=== PATIENT | female | born 1980 | race Caucasian/White ===

== ENCOUNTER 2017-10-22 10:04 | Emergency (ER) | payer BC ==
[2017-10-22 11:12] LABS: ABS Basophils 0 10^3/ul (0-0.2); ABS Eosinophils 0.1 10^3/ul (0-0.6); ABS Lymphocytes 0.6 10^3/ul (1.0-4.8); ABS Monocytes 0.4 10^3/ul (0-0.8); ABS Neutrophils 6.8 10^3/ul (1.5-7.7); ABS Nucleated RBC 0 10^3/ul; Eosinophil % 1.1 % (0-6); Hematocrit 39 % (35-47); Hemoglobin 13.3 g/dl (12.0-16.0); Lymphocyte % 7.7 % (25-47); Mean Corpuscular HGB Conc 34 g/dl (31-36); Mean Corpuscular Hemoglobin 31 pg (27-31); Mean Corpuscular Volume 91 fL (80-97); Mean Platelet Volume 8 um3 (7.4-10.4); Nucleated Red Blood Cells % 0; Platelet Count 300 10^3/ul (150-450); Red Blood Count 4.27 10^6/ul (4.0-5.4); Red Cell Distribution Width 13 % (10.5-15)
[2017-10-22 11:23] LABS: INR 0.96 (0.77-1.02)
--- NOTE | 2017-10-22 11:26 | RAD ---
INDICATION: Short of breath COMPARISON: None TECHNIQUE: PA and lateral dual-energy views were obtained. FINDINGS: Bones/Soft Tissues: There are no acute bony findings. Cardiomediastinal: The cardiomediastinal silhouette is normal. Lungs: There are no infiltrates. Pleura: There are no pleural effusions. Other: None IMPRESSION: NORMAL CHEST
[2017-10-22 11:37] LABS: EGFR Non-African American 76.3 (>60)
[2017-10-22 12:47] VITALS: BP 129/87
--- NOTE | 2017-10-22 15:02 | ED ---
Madison Juan Gabriel, scribed for Jamshid Greenwood MD on 10/22/17 at 1204 . Influenza-Like Illness - HPI Summary HPI Summary: This patient is a 37 year old F presenting to [facility] accompanied by her with a chief complaint of flu like illness since a week ago. The patient rates the pain 4/10 in severity. Patient reports productive cough, fever, rhinorrhea, chest congestion, and nasal congestion. Patient denies sore throat. Pt had influenza B last month. - History of Current Complaint Chief Complaint: EDFluSymptoms Hx Obtained From: Patient Onset/Duration: Lasting Weeks - 1, Still Present Severity: Mild Associated Signs & Symptoms: Fever, Cough, Nasal Congestion - Allergy/Home Medications Allergies/Adverse Reactions: Allergies Allergy/AdvReac Type Severity Reaction Status Date / Time Sulfa (Sulfonamide Allergy Hives Verified 10/22/17 10:11 Antibiotics) Home Medications: Home Medications Levonorgestrel-Ethin Estradiol [Orsythia] 1 tab PO DAILY 10/22/17 [History Confirmed 10/22/17] PMH/Surg Hx/FS Hx/Imm Hx Endocrine/Hematology History: Denies: Hx Anticoagulant Therapy, Hx Blood Disorders Respiratory History: Denies: Hx Chronic Obstructive Pulmonary Disease (COPD), Hx Cystic Fibrosis, Hx Lung Cancer, Hx Pleural Effusion, Hx Pulmonary Edema, Hx Pulmonary Embolism, Hx Sleep Apnea Musculoskeletal History: Denies: Hx Arthritis Sensory History: Denies: Hx Cataracts Opthamlomology History: Denies: Hx Cataracts Neurological History: Denies: Hx CVA, Hx Dementia - Surgical History Surgery Procedure, Year, and Place: gallbladder, left knee ACL repair, tonsilectomy Infectious Disease History: No Infectious Disease History: Denies: Traveled Outside the [place] in Last 30 Days - Family History Known Family History: Positive: Hypertension Negative: Renal Disease, Respiratory Disease, Seizure Disorder, Blood Disorder - Social History Occupation: Employed Full-time Lives: With Family Alcohol Use: Occasionally Substance Use Type: Reports: None Smoking Status (MU): Never Smoked Tobacco Review of Systems Positive: Fever Positive: Nasal Discharge - and congestion . Negative: Sore Throat Positive: Cough, Other - chest congestion All Other Systems Reviewed And Are Negative: Yes Physical Exam - Summary Physical Exam Summary: Appearance: The patient is well-nourished in no acute distress and in no acute pain. Skin: The skin is warm and dry and skin color reflects adequate perfusion. HEENT: The head is normocephalic and atraumatic. The pupils are equal and reactive. The conjunctivae are clear and without drainage. . Mouth reveals moist mucous membranes and the throat is without erythema and exudate. The external ears are intact. The ear canals are patent and without drainage. The tympanic membranes are intact. Nasal congestion Neck: the neck is supple with full range of motion and non-tender. There are no carotid bruits. There is no neck vein distension. Respiratory: Chest is non-tender. Lungs are clear to auscultation and breath sounds are symmetrical and equal. Dry cough Cardiovascular: Heart is regular rate and rhythm. There is no murmur or rub auscultated. There is no peripheral edema and pulses are symmetrical and equal. Abdomen: The abdomen is soft and non-tender. There are normal bowel sounds heard in all four quadrants and there is no organomegaly palpated. Musculoskeletal: There is no back tenderness noted. Extremities are non-tender with full range of motion. There is good capillary refill. There is no peripheral edema or calf tenderness elicited. Neurological: Patient is alert and oriented to person, place and time. The patient has symmetrical motor strength in all four extremities. Cranial nerves are grossly intact. Deep tendon reflexes are symmetrical and equal in all four extremities. Psychiatric: The patient has an appropriate affect and does not exhibit any anxiety or depression. Triage Information Reviewed: Yes Vital Signs On Initial Exam: Initial Vitals Temp Pulse Resp BP Pulse Ox 102.8 F 146 22 150/100 100 10/22/17 10:08 10/22/17 10:08 10/22/17 10:08 10/22/17 10:08 10/22/17 10:08 Vital Signs Reviewed: Yes Diagnostics - Vital Signs Vital Signs Temp Pulse Resp BP Pulse Ox 10/22/17 10:08 102.8 F 146 22 150/100 100 - Laboratory Lab Results: Lab Results 10/22/17 10/22/17 10/22/17 Range/Units 10:36 11:00 11:00 WBC 8.0 (3.5-10.8) 10^3/ul RBC 4.27 (4.0-5.4) 10^6/ul Hgb 13.3 (12.0-16.0) g/dl Hct 39 (35-47) % MCV 91 (80-97) fL MCH 31 (27-31) pg MCHC 34 (31-36) g/dl RDW 13 (10.5-15) % Plt Count 300 (150-450) 10^3/ul MPV 8 (7.4-10.4) um3 Neut % (Auto) 85.1 H (38-83) % Lymph % (Auto) 7.7 L (25-47) % Jessamine % (Auto) 5.6 (0-7) % Eos % (Auto) 1.1 (0-6) % Baso % (Auto) 0.5 (0-2) % Absolute Neuts (auto) 6.8 (1.5-7.7) 10^3/ul Absolute Lymphs (auto) 0.6 L (1.0-4.8) 10^3/ul Absolute Monos (auto) 0.4 (0-0.8) 10^3/ul Absolute Eos (auto) 0.1 (0-0.6) 10^3/ul Absolute Basos (auto) 0 (0-0.2) 10^3/ul Absolute Nucleated RBC 0 10^3/ul Nucleated RBC % 0 INR (Anticoag Therapy) 0.96 (0.77-1.02) APTT 30.3 (26.0-36.3) seconds Sodium (133-145) mmol/L Potassium (3.5-5.0) mmol/L Chloride (101-111) mmol/L Carbon Dioxide (22-32) mmol/L Anion Gap (2-11) mmol/L BUN (6-24) mg/dL Creatinine (0.51-0.95) mg/dL Est GFR ( Amer) (>60) Est GFR (Non-Af Amer) (>60) BUN/Creatinine Ratio (8-20) Glucose (70-100) mg/dL Lactic Acid (0.5-2.0) mmol/L Calcium (8.6-10.3) mg/dL Total Bilirubin (0.2-1.0) mg/dL AST (13-39) U/L ALT (7-52) U/L Alkaline Phosphatase (34-104) U/L Troponin I (<0.04) ng/mL Total Protein (6.4-8.9) g/dL Albumin (3.2-5.2) g/dL Globulin (2-4) g/dL Albumin/Globulin Ratio (1-3) Influenza A (Rapid) Negative (Negative) Influenza B (Rapid) Negative (Negative) 10/22/17 10/22/17 Range/Units 11:00 11:00 WBC (3.5-10.8) 10^3/ul RBC (4.0-5.4) 10^6/ul Hgb (12.0-16.0) g/dl Hct (35-47) % MCV (80-97) fL MCH (27-31) pg MCHC (31-36) g/dl RDW (10.5-15) % Plt Count (150-450) 10^3/ul MPV (7.4-10.4) um3 Neut % (Auto) (38-83) % Lymph % (Auto) (25-47) % Jessamine % (Auto) (0-7) % Eos % (Auto) (0-6) % Baso % (Auto) (0-2) % Absolute Neuts (auto) (1.5-7.7) 10^3/ul Absolute Lymphs (auto) (1.0-4.8) 10^3/ul Absolute Monos (auto) (0-0.8) 10^3/ul Absolute Eos (auto) (0-0.6) 10^3/ul Absolute Basos (auto) (0-0.2) 10^3/ul Absolute Nucleated RBC 10^3/ul Nucleated RBC % INR (Anticoag Therapy) (0.77-1.02) APTT (26.0-36.3) seconds Sodium 135 (133-145) mmol/L Potassium 3.7 (3.5-5.0) mmol/L Chloride 102 (101-111) mmol/L Carbon Dioxide 24 (22-32) mmol/L Anion Gap 9 (2-11) mmol/L BUN 7 (6-24) mg/dL Creatinine 0.84 (0.51-0.95) mg/dL Est GFR ( Amer) 98.1 (>60) Est GFR (Non-Af Amer) 76.3 (>60) BUN/Creatinine Ratio 8.3 (8-20) Glucose 106 H (70-100) mg/dL Lactic Acid 0.7 (0.5-2.0) mmol/L Calcium 9.3 (8.6-10.3) mg/dL Total Bilirubin 0.40 (0.2-1.0) mg/dL AST 13 (13-39) U/L ALT 12 (7-52) U/L Alkaline Phosphatase 60 (34-104) U/L Troponin I 0.00 (<0.04) ng/mL Total Protein 8.0 (6.4-8.9) g/dL Albumin 4.4 (3.2-5.2) g/dL Globulin 3.6 (2-4) g/dL Albumin/Globulin Ratio 1.2 (1-3) Influenza A (Rapid) (Negative) Influenza B (Rapid) (Negative) Result Diagrams: 10/22/17 11:00 10/22/17 11:00 Lab Statement: Any lab studies that have been ordered have been reviewed, and results considered in the medical decision making process. - Radiology CXR Radiology Interpretation Completed By: Radiologist - normal chest ED physician has reviewed this radiology report. Flu Symptom Course/Dx - Course Course Of Treatment: Ms. Grijalva has been coughing for a week with a mostly dry cough and has been spiking fevers for a few days. She had influenza B last month but had been completely improved. Flu swabs are negative here as is her CXR and I will treat her symptomatically. She has no underlying lung disease. - Diagnoses Provider Diagnoses: Acute bronchitis Discharge - Discharge Plan Condition: Stable Disposition: HOME Prescriptions: Benzonatate CAP* [Tessalon 100 MG CAP*] 100 mg PO TID #30 cap Patient Education Materials: Acute Bronchitis (ED) Referrals: Umer Mcelroy DO [Primary Care Provider] - 4 Days Additional Instructions: RETURN TO EMERGENCY DEPARTMENT FOR ANY NEW OR WORSENING SYMPTOMS The documentation as recorded by the Madison long Gabriel accurately reflects the service I personally performed and the decisions made by me, Jamshid Greenwood MD.
== END 2017-10-22 12:45 | disposition home or self-care (01) ==
LOC: ED 10:04
DX: R50.9 Fever, unspecified (principal); R05 Cough; J20.9 Acute bronchitis, unspecified
CPT/HCPCS: 36415; 71046; 80053; 83605; 84484; 85025; 85610; 85730; 87040; 87502; 99282

== ENCOUNTER 2019-04-25 13:33 | Emergency (ER) | payer BC, OTHER ==
[2019-04-25 13:45] VITALS: BP 135/82
--- NOTE | 2019-04-25 13:54 | UC ---
Neck Pain HPI - HPI Summary HPI Summary: Patient presents to urgent care for evaluation of left posterior neck pain. Patient states possibly 2 weeks ago she was doing pushups when she lifted her head and felt a pop. Patient states since this time she's got focal pain in one location. Patient states when she flexes her neck or rotates that she has increased pain. Patient states when she extends her neck the pain seems to improve. Patient states that she feels tightness and slight headache in the same left posterior headache area. Patient states pain is better when she takes Motrin. Patient states it comes back with it wears off. No paresthesias or weakness of her extremities. No weakness of her choice. No other complaints. Patient without a history of similar. No ear pain sinus pain vision changes. Patient's on any anticoagulation. Patient's not pertinent. Patient's medications reviewed this visit. - History of Current Complaint Chief Complaint: UCHeadache Stated Complaint: PARKER,NECK PAIN Time Seen by Provider: 04/25/19 13:44 Hx Obtained From: Patient Hx Last Menstrual Period: 04/25/19 ?: No Onset/Duration Of Injury/Symptoms: Weeks Onset/Duration: Sudden Onset, Lasting Weeks Severity: Mild Pain Intensity: 3 - Allergies/Home Medications Allergies/Adverse Reactions: Allergies Allergy/AdvReac Type Severity Reaction Status Date / Time Sulfa (Sulfonamide Allergy Hives Verified 04/25/19 13:45 Antibiotics) PMH/Surg Hx/FS Hx/Imm Hx Previously Healthy: Yes Other History Of: Negative For: Anticoagulant Therapy - Surgical History Surgical History: Yes Surgery Procedure, Year, and Place: gallbladder, left knee ACL repair, tonsilectomy - Family History Known Family History: Positive: Hypertension Negative: Renal Disease, Respiratory Disease, Seizure Disorder, Blood Disorder - Social History Alcohol Use: Occasionally Substance Use Type: None Smoking Status (MU): Never Smoked Tobacco Review of Systems All Other Systems Reviewed And Are Negative: Yes Constitutional: Positive: Negative Skin: Positive: Negative Eyes: Positive: Negative ENT: Positive: Negative Respiratory: Positive: Negative Cardiovascular: Positive: Negative Gastrointestinal: Positive: Negative Musculoskeletal: Positive: Other: - left occiput/upper back Is Patient Immunocompromised?: No Physical Exam - Summary Physical Exam Summary: Vital Signs Reviewed: Yes A+Ox3, no distress at rest, discomfort with ROM Eyes: Conjunctiva Clear, WEST. EOM intact and full ENT: Hearing grossly normal TM x 2 clear, mmoist, uvula midline, no exudate, no erythema Neck: Positive: supple Respiratory: Positive: No respiratory distress, No accessory muscle use + CTA throughout no w/r Cardiovascular: RRR nl s1, s2 no m/r CBT <2 sec, no bruits b/l abd soft + BS nt/nd no guarding, no distension, no bruits Musculoskeletal Exam: No spinous process pain c/t/l/s Pt with point tenderness left occiput base skull - pain with direct palp. Pain increases with flexion, right lateral rotation. Pain improves with extension of cpsine full AROM upper ext without reproduction Neurological: Positive: Alert, + sensation throughout Psychological: Positive: Normal Response To examiner Skin: Positive: no rash, no ecchymosis Triage Information Reviewed: Yes Vital Signs: Initial Vital Signs Temp 97.7 F 04/25/19 13:40 Pulse 90 04/25/19 13:40 Resp 18 04/25/19 13:40 BP 135/82 04/25/19 13:40 Pulse Ox 100 04/25/19 13:40 Neck Pain Course/Dx - Course Course Of Treatment: Patient with tenderness to palpation with direct palpation of the left occiput. Pain is worse with flexion as well as lateral rotation. Improved with rest and extension. Patient states she felt a palpable blood pressure approximately 2 weeks ago. Patient reports pain is improved with anti-inflammatories. On exam vital signs are stable. Patient does have point tenderness. Suspect patient has a muscle strain and now compounding spasm. Recommend the following alternate Motrin Tylenol for pain Apply heat. Slow, gentle stretching exercises when muscles are warm Flexeril at nighttime. Precautions given - Recommend support collar. Patient states she will not wears recommended she consider using a travel met pillow rolled up towel. Heat and gentle massage Recommend patient follow up with sports medicine if symptoms do not improve. I also discussed patient possibility some steroids for inflammatory relief. Patient will start these on Sunday of her pain does not improve. Patient comfortable in agreement with plan. Strict return precautions. Patient declined work note : - Differential Dx/Diagnosis Provider Diagnosis: Cervical strain Discharge ED - Sign-Out/Discharge Documenting (check all that apply): Patient Departure All imaging exams completed and their final reports reviewed: No Studies - Discharge Plan Condition: Stable Disposition: HOME Prescriptions: Cyclobenzaprine TAB* [Flexeril 10 MG TAB*] 10 mg PO BID PRN #10 tab PRN Reason: muscle spasm methylPREDNISolone [Medrol Dosepak 4 MG*] 1 mg PO .SEE SANGEETA INSTRUCTION #1 tab Patient Education Materials: Cervical Strain (ED) Referrals: [facility] [Provider Group] Umer Mcelroy DO [Primary Care Provider] - Additional Instructions: -Okay to alternate ibuprofen (Advil, Motrin) 600mg and Tylenol every 3hours as needed for pain. Take with food. Do NOT take for more than 4-5 days. -Take flexeril - muscle relaxer as prescribed - do NOT drive, operate machinery , or drink alcohol while taking this medication - may cause sedation -Apply moist heat to your back for 20 minutes at a time, 4-5 times a day. Once your muscles are warm, slow gentle stretching exercises are important - consider wearing a support pillow around your neck - concentrate on relaxing your muscles - if your continue with discomfort - okay to start prednisone as prescribed on Sunday, 04/27 -Contact your doctor or the sports medicine clinic to arrange a follow-up appointment next week if your symptoms persist -If you pain is uncontrolled - go to an emergency department for further treatment - Billing Disposition and Condition Condition: STABLE Disposition: Home
== END 2019-04-25 14:25 | disposition home or self-care (01) ==
LOC: UCCORT 13:33
DX: S16.1XXA Strain of muscle, fascia and tendon at neck level, initial encounter (principal); X50.0XXA Overexertion from strenuous movement or load, initial encounter; Y93.B2 Activity, push-ups, pull-ups, sit-ups; Y92.9 Unspecified place or not applicable
CPT/HCPCS: 99212; G0463